=== PATIENT | male | born 1990 | race Caucasian/White ===

== ENCOUNTER → 2022-09-23 10:11 | Outpatient (CLI) | payer BC, SELFPAY ==
[2022-09-23 12:08] LABS: Urine N gonorrhoeae NOT DETECTED
[2022-09-23 12:11] LABS: Urine Chlamydia NOT DETECTED
== END ==
PROVIDERS: Visit Provider Nurse Practitioner Family
DX: R35.0 Frequency of micturition (principal); Z11.3 Encounter for screening for infections with a predominantly sexual mode of transmission
CPT/HCPCS: 87086; 87491; 87591